=== PATIENT | female | born 1990 ===

== ENCOUNTER 2017-02-01 10:06 | Inpatient (IN) | payer SELFPAY ==
[2017-02-01 10:21] VITALS: BMI 34.0
[2017-02-01] MEDS ORDERED: cefOXitin IV 2 gm in Dextrose 2 GM/50 ML BAG IVPB ONE ×2 (10:32→12:02)
[2017-02-01] MEDS ORDERED: Penicillin G Potassium 5 MU in Dextrose 5% In Water 50 ML IV ONE (10:32)
[2017-02-01] MEDS ORDERED: Sodium Citrate/Citric Acid 15 ml Sol PO ONE (10:35)
[2017-02-01] MEDS ORDERED: Penicillin G 5 Million Unit Vial IVPB ONE (10:49)
--- NOTE | 2017-02-01 10:54 | OBADHP ---
Datetime: 02/01/2017 10:20 Admit Comment, IP Provider: Patient is a 26 year old at 38 weeks and 2 days with an CARROLL (01/24) by US with a LMP (05/08/16), who presents with complaints of leakage of fluid that occurred at 8:55am. Patient denies contrations, vaginal bleeding, abnormal vaginal discharge, fever, chills, darrel sea and vomiting. Patient endorses movement. issues: Denies OB Hx: G1: Current Housekeeping Staff Hx: Menarche: 16 Triad: 15/regular/4days Denies hx of abnormal pap smear or STDs Denies hx of fibroids and ovarian cyst PMHx: Denies PSHx: Denies FHx: Denies Allergies: NKDA Medications: PNV Social Hx: lives with mother. denies hx of current or former use of tobacco, ETOH and illicit drug s VS: BP Physical Examination: See above A/P: 26 yo G1PO at 38 weeks and 2 days who presents with complaints of leakage of fluid at 8:55am with bedside US noting breech presenstation and + nitrazine test 1. Admit to unit 2. Admission orders: CBC, CMP, TS, RPR, HIV 3. Preparation for Caesaran section due to breech presentation 4. CEFM and toco 5. GBS+: Pen G 6. Speculum exam: nitrazine test + 7. Plans discussed with attending Extremities - PN: Normal Abdomen - PN: Normal Lungs - PN: Normal Heart - PN: Normal General - PN: Normal Comments, ACOG Physical Exam: Gen: AAOx3, NAD Cardio: RRR, normal S1, S2 Pulm: CTA bilaterally Abdomen: Soft, gravid and fundal height at 37.5 weeks Ext: No edema, no clubbing and no cyanosis EFM: 140, +accels, -decels TOCO: Irregular SVE: 2/80%/-2 (Annotations: Data stored by CPN on behalf of user) Gestation - Est Wks by US: 38.2 Nitrazine Provider: Negative IP Hx Assessment: The History has been Reviewed and is Current IP Chief Complaint: Suspected ruptured membranes NICHD Accel Fetus A IP Provider: 15X15 Dilatation, Provider: 2 Effacement, Provider: 80 Station, Provider: -2 EGA AdmitDate IP: 38.3 IP Adm Impression: Term, intrauterine ; Ruptured Membranes IP Admit Plan: Admit to unit; Initiate Section protocol
[2017-02-01] MEDS: Lactated Ringer's 1,000 ML IV SCH ×2 (10:55→19:49)
[2017-02-01 11:03] LABS: BASO # 0.1 K/uL (0.0-0.2); BASO % 0.6 % (0.0-2.0); EOS % 0.3 % (0.0-4.0); HEMATOCRIT 31.1 % (34.0-47.0); LYMPH # 2.1 K/uL (1.0-4.3); LYMPH % 15.6 % (20.0-40.0); MEAN CORPUSCULAR HEMOGLOBIN 21.8 pg (27.0-31.0); MEAN CORPUSCULAR HGB CONC 30.9 g/dL (33.0-37.0); MEAN PLATELET VOLUME 7.6 fL (7.2-11.7); MONO # 0.6 K/uL (0.0-0.8); MONO % 4.6 % (0.0-10.0); RED CELL DISTRIBUTION WIDTH 16.1 % (11.5-14.5); WHITE BLOOD COUNT 13.6 K/uL (4.8-10.8)
[2017-02-01 11:09] LABS: MEAN CELL VOLUME 70.6 fL (81.0-99.0)
[2017-02-01 11:17] LABS: CHLORIDE 103 mmol/L (98-107)
[2017-02-01 11:18] LABS: POTASSIUM 4.1 mmol/L (3.6-5.2); SODIUM 131 mmol/L (132-148)
[2017-02-01 11:19] LABS: RBC URINE 5 /hpf (0-3); URINE BILIRUBIN NEGATIVE (NEGATIVE); URINE BLOOD 1+ (NEGATIVE); URINE COLOR Yellow (YELLOW); URINE GLUCOSE (UA) NORMAL (Normal); URINE KETONE NEGATIVE (NEGATIVE); URINE LEUKOCYTE ESTERASE NEG Leu/uL (Negative); URINE PROTEIN NEGATIVE (NEGATIVE); URINE UROBILINOGEN NORMAL mg/dL (0.2-1.0); WBC URINE 1 /hpf (0-5)
[2017-02-01 11:20] LABS: ALB/GLOB RATIO 0.9 (1.0-2.1); AST/SGOT 12 U/L (14-36); BILIRUBIN,TOTAL 0.3 mg/dL (0.2-1.3); CARBON DIOXIDE 19 mmol/L (22-30); GFR AFRICAN-AMERICAN > 60; TOTAL PROTEIN 7.6 g/dL (6.3-8.3)
[2017-02-01 11:21] LABS: ALKALINE PHOSPHATASE 192 U/L (38-126); ALT/SGPT 20 U/L (9-52); BLOOD UREA NITROGEN 7 mg/dL (7-17); CALCIUM 8.9 mg/dl (8.6-10.4); GLUCOSE,RANDOM 80 mg/dL (65-105)
[2017-02-01] MEDS ORDERED: Sodium Citrate/Citric Acid 15 ml Sol ONE (12:02)
[2017-02-01] MEDS ORDERED: Oxytocin 20 units in LR 2,000 ML IV ONE (12:02)
[2017-02-01] MEDS ORDERED: Oxycodone/Acetaminophen 5/325 mg Tab PO PRN ×2 (12:43)
[2017-02-01] MEDS ORDERED: Morphine 1 mg/ml preservative-free Inj(Duramorph) ONE (12:50)
--- NOTE | 2017-02-01 14:03 | OBDS ---
MATERNAL INFORMATION Provider Comments: baby deliverd in complete breech 9/9 cord gas send no com LABOR SUMMARY EDC: 02/12/2017 00:00 No. Babies in Womb: 0 LABOR INFORMATION Group B Beta Strep: Positive MEMBRANES Membranes Rupture Method: Spontaneous Amniotic Fluid Color: Clear Amniotic Fluid Amount: Moderate Amniotic Fluid Odor: None PRESENTATION/POSITION BABY A Presentation: Breech Breech Presentation: Jeanmarie PLACENTA INFORMATION BABY A Placenta Method of Delivery: Spontaneous Placenta Status: Delivered INFANT INFORMATION BABY A Gestational Age at Delivery: 38.3 Gestational Status: Term IDENTIFICATION/MEDS BABY A ID Band Number: [id number] Sensor Number: [id number] CORD INFORMATION BABY A Nuchal Cord : N/A
--- NOTE | 2017-02-01 14:13 | PCM.SURG1 ---
Surgeon's Initial Post Op Note - Surgeon's Notes Surgeon: dr faith Child Psychology Teacher: dr casper Type of Anesthesia: Spinal Anesthesia Administered By: dr shaffer Pre-Operative Diagnosis: 26 yr at 38+weks prom/breech Operative Findings: see the op report Post-Operative Diagnosis: same .giovanna breech Operation Performed: primary section Specimen/Specimens Removed: cord blood. cord gas Estimated Blood Loss: EBL {In ML}: 800 Blood Products Given: N/A Drains Used: No Drains Post-Op Condition: Good Date of Surgery/Procedure: 02/01/17 Time of Surgery/Procedure: 14:30
[2017-02-01] MEDS: Simethicone 80 mg Chewtab PO SCH ×2 (18:28→21:31)
[2017-02-01] MEDS: cefOXitin IV 2 gm in Dextrose 2 GM/50 ML BAG IVPB SCH (19:44)
--- NOTE | 2017-02-02 00:38 | OP ---
PROCEDURE DATE: PREOPERATIVE DIAGNOSIS: A 26-year-old 1, para 0 at 38 plus weeks with premature rupture of membrane breech. POSTOPERATIVE DIAGNOSIS: A 26-year-old 1, para 0 at 38 plus weeks with premature rupture of membrane breech. SURGEON: Dr. José Miguel Resendiz. VEST BUSHELER: Sinan Gordon MD who was present throughout the surgery for retraction, exposing, and pushing at the time of the delivery. ANESTHESIA: Spinal. ANESTHESIA ADMINISTERED BY: COMPLICATIONS: None. ESTIMATED BLOOD LOSS: 800 mL. DESCRIPTION OF PROCEDURE: After informed consent was obtained, the patient was brought to the operating room, placed on the table where spinal anesthesia was given. Once the anesthesia was given, the patient was prepped and draped in normal sterile fashion. At the site of previous skin incision, an incision was made with a knife, the subcutaneous cut with a Bovie. The fascia was then excised on both the sides using curved Borrero scissors. The fascia was from the site of the umbilicus and then at the site of the pubic bone. Rectus muscle was . Peritoneum was incised and we went into the abdominal cavity, bladder blade was placed and bladder flap was created. Lower uterine segment incision was made with a knife, it was extended using Bovie and curved Borrero scissors. Baby delivered in a giovanna breech, cord was clamped and cut, baby was handed to the awaiting transfer station attendant. Cord gas was taken and cord blood was taken. Placenta was delivered manually and sent to the pathology. Uterus was exteriorized. Uterus was very small for a 38-week size uterus. All clots were taken out and cleaned. The uterine incision was closed using #1 Vicryl in running interlocking fashion, second layer was closed with the same stitch. Cul-de-sac was cleared of all the clots and debris. Uterus was returned back to abdominal cavity. Both the tubes and ovaries look normal. Incision was looked back and it was hemostatic. Interceed was placed. Peritoneum was closed using 2-0 Vicryl in running interlocking fashion. The muscle was closed using 2-0 Vicryl in running interlocking fashion. Fascia was closed using number 1 Vicryl in running interlocking fashion. Muscle was closed using 2-0 Vicryl interrupted fashion. Fascia was closed using number 1 Vicryl in running interlocking fashion. Subcutaneous tissue was closed with 0 Vicryl in running interrupted fashion. Skin was closed using alessandra. The patient tolerated the procedure well. Lap, sponge and instrument counts were correct x2. José Miguel Resendiz MD
[2017-02-02] MEDS: cefOXitin IV 2 gm in Dextrose 2 GM/50 ML BAG IVPB SCH (04:45)
[2017-02-02] MEDS: Lactated Ringer's 1,000 ML IV SCH (04:46)
[2017-02-02 08:48] LABS: BASO % 0.2 % (0.0-2.0); EOS % 0.1 % (0.0-4.0); HEMATOCRIT 29.6 % (34.0-47.0); LYMPH # 1.4 K/uL (1.0-4.3); LYMPH % 7.5 % (20.0-40.0); MEAN CELL VOLUME 70.7 fL (81.0-99.0); MEAN CORPUSCULAR HEMOGLOBIN 22.7 pg (27.0-31.0); MEAN CORPUSCULAR HGB CONC 32.1 g/dL (33.0-37.0); MEAN PLATELET VOLUME 7.9 fL (7.2-11.7); MONO % 5.2 % (0.0-10.0); PLATELET COUNT 315 K/uL (130-400); RED CELL DISTRIBUTION WIDTH 16.4 % (11.5-14.5); WHITE BLOOD COUNT 18.6 K/uL (4.8-10.8)
--- NOTE | 2017-02-02 09:16 | OBPPN ---
Datetime: 02/02/2017 09:02 PP Pain Prov: Within normal limits PP Nausea Prov: Denies PP Flatus Prov: No PP BM Prov: No PP Breasts Prov: Normal PP Heart Prov: Normal PP Lungs Prov: Normal PP Abdomen/Uterus Prov: Normal PP Lochia Prov: Normal PP Vulva/Perineum Prov: Not Done PP CVA Tenderness Prov: Normal PP Extremities Prov: Normal PP C/S Incision Prov: Normal PP Progress Prov: Normal PP Comments Phys Exam Prov: Abdomen: (+) BS. Softly distended. Fundus firm, mild and appropriately t dereje, 1 FB below umbilicus. Mild lochia rubra. Dressing clean and dry. Extremities: trace pedal edema bilaterally; no calf tenderness All other systems reviewed and are negative PP Impression Prov: Normal progression PP Plan Prov: Continue present management PP Progress Note Prov: Patietn received in room 460; ambulating. and mother present. Breastf eeding. Not yet voided; denies nausea or vomiting after clear liquid diet. Denies dizziness, shortnes s of breath. P.E.: as above. Obese in NAD. Awake, alert, oriented to time, person and place. Pleasant and meat cooler perative - POD#1 H/H 9.5/29.6; RH (+) Assessment: POD#1, 26 y.o. P1, S/P primary LTCS for breech presentation. Afebrile, vital signs sta ble. Returning GI function; function to be assessed once patient voids. Chronic anemia - stable po st operative H/H;' asymptomatic and hemodynamically stable. H/O PPD(+); no CXR perfromed in antepar amari - hence for CXR now. Clinically stable Plan: 1) CXR - PA and Lateral now 2) Advance to regular diet 3) Encourage ambulation outside the room 4) continue present management Vital Signs Provider PP: Reviewed; Within Normal Limits
[2017-02-02] MEDS: Simethicone 80 mg Chewtab PO SCH ×4 (09:44→22:06)
[2017-02-02 10:04] LABS: NEUTROPHIL 86 % (50-75); TOTAL CELLS COUNTED 100
[2017-02-02 10:06] LABS: GIANT PLATELETS PRESENT; LARGE PLATELETS PRESENT
[2017-02-03 08:11] LABS: BASO % 0.3 % (0.0-2.0); EOS % 0.1 % (0.0-4.0); LYMPH # 1.5 K/uL (1.0-4.3); LYMPH % 9.4 % (20.0-40.0); MEAN CELL VOLUME 71.1 fL (81.0-99.0); MEAN CORPUSCULAR HGB CONC 32.4 g/dL (33.0-37.0); MEAN PLATELET VOLUME 7.7 fL (7.2-11.7); MONO # 0.8 K/uL (0.0-0.8); MONO % 4.7 % (0.0-10.0); PLATELET COUNT 318 K/uL (130-400); RED CELL DISTRIBUTION WIDTH 16.2 % (11.5-14.5); WHITE BLOOD COUNT 16.2 K/uL (4.8-10.8)
[2017-02-03 09:06] LABS: NEUTROPHIL 83 % (50-75); TOTAL CELLS COUNTED 100
[2017-02-03] MEDS: Simethicone 80 mg Chewtab PO SCH ×4 (09:21→21:53)
--- NOTE | 2017-02-03 09:37 | RAD ---
HISTORY: COMPARISON: No prior. TECHNIQUE: Chest PA and lateral FINDINGS: LINES AND TUBES: None. LUNG AND PLEURA: The lungs are well inflated and clear. HEART AND MEDIASTINUM: The heart is not enlarged. The hilar and mediastinal contours are within normal limits. SKELETAL STRUCTURES: The bony structures are within normal limits for the patient's age. VISUALIZED UPPER ABDOMEN: Normal. OTHER FINDINGS: There is a small amount of free air under the right hemidiaphragm, likely postoperative in etiology. IMPRESSION: No active pulmonary disease. Small amount of free air under the right hemidiaphragm likely postoperative in etiology.
--- NOTE | 2017-02-03 09:57 | OBPPN ---
Datetime: 02/03/2017 09:48 PP Pain Prov: Within normal limits PP Nausea Prov: Denies PP Flatus Prov: Yes PP BM Prov: Yes PP Breasts Prov: Normal PP Heart Prov: Normal PP Lungs Prov: Normal PP Abdomen/Uterus Prov: Normal PP Lochia Prov: Normal PP Vulva/Perineum Prov: Not Done PP CVA Tenderness Prov: Normal PP Extremities Prov: Normal PP C/S Incision Prov: Normal PP Progress Prov: Normal PP Comments Phys Exam Prov: Abdomen: Obese. Soft. Non distended. Minimal fundal tenderness - appropr iate. Fundus firm, mobile. Incision with alessandra - clean, dry and intact. Mild lochia rubra All other systems reviewed and are negative PP Impression Prov: Normal progression PP Plan Prov: Continue present management PP Progress Note Prov: Patient received in chair in room 460; consult present - education in progress. Denies nausea, vomiting; dizziness, lightheadedness. (+) voiding and ambulating. P.E.: as above. Obese, in NAD. Awake, alert, oriented to time, person and place. Pleasant and coop erative. and mother also present Assessment: POD#2, 26 y.o. P1, S/P primary LTCS for breech presentation. Afebrile, vital signs st able. H/O PPD(+) - CXR- negative. Chronic anemia - asymptomaitc and hemodynamically stable. Currently on iron. Returinig GI and functions. Clinically stable. Plan: 1) Continue present management 2) Anticipate discharge home 02/04/17 Vital Signs Provider PP: Reviewed; Within Normal Limits
[2017-02-04 09:30] VITALS: BP 120/69; PULSE 84; RESP 18; TEMP 98.7; O2SAT 99
[2017-02-04] MEDS ORDERED: Influenza Vaccine 60 mcg/0.5 mL SYR (4YR UP) IM ONE (10:00)
--- NOTE | 2017-02-04 10:20 | OBPPN ---
Datetime: 02/04/2017 07:04 PP Pain Prov: Within normal limits PP Nausea Prov: Denies PP Flatus Prov: Yes PP BM Prov: Yes PP Breasts Prov: Normal PP Heart Prov: Normal PP Lungs Prov: Normal PP Abdomen/Uterus Prov: Normal PP Lochia Prov: Normal PP Vulva/Perineum Prov: Normal PP CVA Tenderness Prov: Normal PP Extremities Prov: Normal PP C/S Incision Prov: Normal PP Progress Prov: Normal PP Impression Prov: Normal progression PP Plan Prov: Continue present management PP Progress Note Prov: Patient was seen and examined at bedside in the AM. Patient states she is fe eling well and denies any pain. Patient states she is taking only Motrin for pain at night. Patient is passing flatus and has had a bowel movement yesterday. Patient states she is ambulating. Patient denies fever, nausea, vomiting or dysuria. Patient states she is breast feeding. Awake, Alert, and Oriented x3 Cardio: S1, S2, RRR Lungs: Clear lungs bilateral Abdomen: Non-tender, fundal height one finger below the umbilicus, incision and alessandra are dry, c lean and intact Lower Extremities: Non-tender, non-swollen Vitals: B/P 120/70, HR 70, Temp 98.6, 98% RA H/H (02/01): 9.6/31.1; H/H (02/03): 9.1/28.0 A/P: 26 year old female s/p 02/01 due to breech position. 1.) Continue ambulation 2.) Continue pain management 3.) Continue breast feeding 4.) Disposition: discharge home today - patient to follow up with [facility] in 1 week to have alessandra removed Marilia Verma DO PGY-1 agree wotj abpve stab;e for d/c rtc 1 week fr staple removal rteurn with baby tomorrow for bilirubin level precaituoin give Vital Signs Provider PP: Reviewed; Within Normal Limits
--- NOTE | 2017-02-04 10:20 | OBDCSUM ---
Datetime: 02/04/2017 10:18 Discharged to, Provider: Home Follow up at, Provider: Clinic Disch Instr Activity: Normal activity Disch Instr Diet: Regular Discharge Instructions, Provider: Routine instructions given Discharge Diagnosis, Provider: Term Delivered Discharge Time: 02/04/2017 10:18 Follow up in weeks, Provider: 1 week Disch Referrals: None Contraception discussed, Prov: Yes Discharge Comment, Provider: staple removal Contraception after Delivery: Not Planning to Use
[2017-02-04] MEDS: Simethicone 80 mg Chewtab PO SCH ×2 (11:01→11:02)
== END 2017-02-04 13:00 | disposition home or self-care (01) | DRG 766 ==
LOC: C.EROB 10:06 → C.4D 10:27 → C.4M 17:00
PROVIDERS: ADMIT Obstetrics & Gynecology; ATTEND Obstetrics & Gynecology
PROC: 10D00Z1 Extraction of Products of Conception, Low, Open Approach (ICD-10-PCS; principal; 2017-02-01)
DX: O42.02 Full-term premature rupture of membranes, onset of labor within 24 hours of rupture (principal); O32.1XX0 Maternal care for breech presentation, not applicable or unspecified; O99.02 Anemia complicating childbirth; O99.214 Obesity complicating childbirth; O99.824 Streptococcus B carrier state complicating childbirth; E66.9 Obesity, unspecified; D64.9 Anemia, unspecified; Z3A.38 38 weeks gestation of pregnancy; Z37.0 Single live birth